=== PATIENT | female | born 1985 | race American Indian/Alaskan Native ===

== ENCOUNTER 2016-11-01 01:11 | Emergency (ER) | payer SELFPAY ==
[2016-11-01 01:30] VITALS: BP 134/85
[2016-11-01] MEDS ORDERED: TYLENOL ONE (04:13)
[2016-11-01] MEDS ORDERED: TYLENOL PO ONE (04:13)
--- NOTE | 2016-11-01 08:34 | Emergency Department Report ---
- General Chief Complaint: Upper Respiratory Infection Stated Complaint: THROAT PAIN Time Seen by Provider: 11/01/16 08:06 Source: patient Mode of arrival: Ambulatory Limitations: No Limitations - History of Present Illness Initial Comments: 31-year-old female presents with complaint of sore throat cough and body aches 4 days. Took Motrin at home with minimal relief of sore throat. Able to tolerate solids and liquids without any difficulty no muffled voice and no drooling. Patient states she came to the ED because Motrin at home was not giving her relief of her sore throat. Speaking in full sentences no shortness of breath no audible dyspnea or air. Denies significant fever or chills, minor body aches. MD Complaint: sore throat Onset/Timin -: days(s) Severity: moderate Severity scale (0 -10): 4 Quality: aching Consistency: constant Improves With: NSAID Associated Symptoms: cough - Related Data Previous Rx's Medication Instructions Recorded Last Taken Type Dextromethorphan HBr/B-Amanule 1 each PO Q4H PRN #18 lozenge 11/01/16 Unknown Rx [Cepacol Sorethroat-Cough Brown] Naproxen [Naprosyn TAB] 500 mg PO BID PRN #14 tablet 11/01/16 Unknown Rx Phenylephrine/Dm/Acetaminop/GG 10 ml PO Q6H PRN #1 bottle 11/01/16 Unknown Rx [Mucinex Fast-Max Sev Cold Liq] Allergies Allergy/AdvReac Type Severity Reaction Status Date / Time No Known Allergies Allergy Verified 11/01/16 01:25 ED Review of Systems ROS: Stated complaint: THROAT PAIN Other details as noted in HPI Constitutional: malaise Eyes: denies: eye pain, eye discharge, vision change ENT: throat pain Respiratory: denies: cough, shortness of breath, wheezing Cardiovascular: denies: chest pain, palpitations Endocrine: no symptoms reported Gastrointestinal: denies: abdominal pain, nausea, diarrhea Genitourinary: denies: urgency, dysuria, discharge Musculoskeletal: denies: back pain, joint swelling, arthralgia Skin: denies: rash, lesions Neurological: denies: headache, weakness, paresthesias Psychiatric: denies: anxiety, depression Hematological/Lymphatic: denies: easy bleeding, easy bruising ED Past Medical Hx - Medications Home Medications: Home Medications Medication Instructions Recorded Confirmed Last Taken Type Dextromethorphan HBr/B-Amanuel 1 each PO Q4H PRN #18 lozenge 11/01/16 Unknown Rx [Cepacol Sorethroat-Cough Brown] Naproxen [Naprosyn TAB] 500 mg PO BID PRN #14 tablet 11/01/16 Unknown Rx Phenylephrine/Dm/Acetaminop/GG 10 ml PO Q6H PRN #1 bottle 11/01/16 Unknown Rx [Mucinex Fast-Max Sev Cold Liq] ED Physical Exam - General Limitations: No Limitations General appearance: alert, in no apparent distress - Head Head exam: Present: atraumatic, normocephalic - Eye Eye exam: Present: normal appearance - ENT ENT exam: Present: mucous membranes moist, other (minro pharngeal erythema, no exudates) - Neck Neck exam: Present: normal inspection - Respiratory Respiratory exam: Present: normal lung sounds bilaterally. Absent: respiratory distress - Cardiovascular Cardiovascular Exam: Present: regular rate, normal rhythm. Absent: systolic murmur, diastolic murmur, rubs, gallop - GI/Abdominal GI/Abdominal exam: Present: soft, normal bowel sounds - Extremities Exam Extremities exam: Present: normal inspection - Back Exam Back exam: Present: normal inspection - Neurological Exam Neurological exam: Present: alert, oriented X3 - Psychiatric Psychiatric exam: Present: normal affect, normal mood - Skin Skin exam: Present: warm, dry, intact, normal color. Absent: rash ED Course Vital Signs 11/01/16 11/01/16 01:28 04:17 Temperature 98.6 F Pulse Rate 80 Respiratory 18 20 Rate Blood Pressure 134/85 Blood Pressure 134/85 [Left] O2 Sat by Pulse 100 Oximetry ED Medical Decision Making - Medical Decision Making A/P: Viral syndrome, URI 1-naproxen when necessary, throat lozenges when necessary 2-1 time Decadron dose for symptomatic relief 3-encourage patient to remain well-hydrated 4-follow-up with primary care doctor Critical care attestation.: If time is entered above; I have spent that time in minutes in the direct care of this critically ill patient, excluding procedure time. ED Disposition Clinical Impression: URI (upper respiratory infection) Qualifiers: URI type: unspecified viral URI Qualified Code(s): J06.9 - Acute upper respiratory infection, unspecified; B97.89 - Other viral agents as the cause of diseases classified elsewhere Disposition: DISCHARGED TO HOME OR SELFCARE Is pt being admited?: No Does the pt Need Aspirin: No Condition: Stable Instructions: Upper Respiratory Infection (ED), Viral Syndrome (ED), Cold Symptoms (ED) Prescriptions: Dextromethorphan HBr/B-Amanuel [Cepacol Sorethroat-Cough Brown] 1 each PO Q4H PRN # 18 lozenge PRN Reason: Sore Throat Phenylephrine/Dm/Acetaminop/GG [Mucinex Fast-Max Sev Cold Liq] 10 ml PO Q6H PRN #1 bottle PRN Reason: Cough Naproxen [Naprosyn TAB] 500 mg PO BID PRN #14 tablet PRN Reason: Fever Referrals: PRIMARY CARE,MD [Primary Care Provider] - 3-5 Days [facility] [Outside] - 3-5 Days Forms: Work/School Release Form(ED) Time of Disposition: 08:33
[2016-11-01] MEDS ORDERED: DECADRON IM ONE (08:35)
== END 2016-11-01 08:57 | disposition home or self-care (01) ==
LOC: ED 01:11
DX: J06.9 Acute upper respiratory infection, unspecified (principal); B97.89 Other viral agents as the cause of diseases classified elsewhere
CPT/HCPCS: 96372; 99282; J1100